=== PATIENT | female | born 1965 | race Caucasian/White ===

== ENCOUNTER 2017-04-22 03:15 | Emergency (ER) | payer OTHER ==
[~2017-04-22] VITALS: Ht 166.4 cm; Wt 80.0 kg
[~2017-04-22 03:15] MED LIST: NOMED
[2017-04-22 03:28] VITALS: BP 155/89; PULSE 87; RESP 14; O2SAT 100
[2017-04-22 04:39] LABS: BASOPHILS % (AUTO) 0.3 % (0-3); EOSINOPHILS % (AUTO) 1.8 % (0-5); MONOCYTES % (AUTO) 9.3 % (4-12); Mean Corpuscular Hemoglobin 30.5 pg (27.0-35.0); NEUTROPHILS % (AUTO) 57.9 % (40-74); Platelet Count 239 bil/L (150-400)
--- NOTE | 2017-04-22 04:58 | ED.REPORT ---
HPI-Chest Pain 40 and Over Date of Service Apr 22, 2017 ED Provider: Daniel Rasmussen MD This is a 51-year-old female with history of GERD who presents to the emergency department with chest pain. Patient reports this is a new sharp chest pain she felt around 12:30 AM today that developed from an acute episode of chronic "xiphoid pain." She mentions she normally has pain from spasms around her xiphoid that radiates to her right flank which has been an ongoing issue for the last 3 years after having her gallbladder removed. Today she noted that she had similar pains but it radiated up into her chest and into the center of her back. She had no associated shortness of breath. Pain is usually worse in a lying position or with lifting objects. She denies fevers, chills, diarrhea, dysuria. She does note she is constipated with her last bowel movement being this morning. Patient mentions she took half a Vicodin and that helped with her pain which is currently a 4 out of 10 in the "center of the back." She does note a new medication Carafate, which she started 2 days prior for suspected gastric ulcer. Nursing Notes Stated Complaint: CHEST AND BACK P AIN Chief Complaint: Chest Pain-Non Cardiac Nature Nursing Notes Reviewed: Yes Allergies: Coded Allergies: acetaminophen (Verified Allergy, Intermediate, projectile vomiting, ) hydrocodone (Verified Allergy, Intermediate, projectile vomiting, 06/11/09 ) oxycodone (Verified Allergy, Intermediate, projectile vomiting, 06/11/09) Scheduled PRN Cyclobenzaprine (Cyclobenzaprine) 10 Mg Tablet 10 MG PO TID PRN PRN Spasm Miscellaneous Medications No Historical Medication (No Historical Medication) Ea General Time Seen by MD: 03:35 Chief Complaint Chest pain Sudden in Onset?: No Past Medical History Past Medical History GERD Past Surgical History Cholecystectomy Family History No family history of heart disease Smoking History Never Smoker Social History Alcohol Use: Denies alcohol use Drug Use: Denies drug use Review of Systems Constitutional: Denies: Chills, Fever Respiratory: Denies: Shortness of breath Cardiovascular: Reports: Chest pain GI: Reports: Abdominal pain, Constipation, Nausea, Denies: Diarrhea, Melena, Vomiting Musculoskeletal: Reports: Back pain, Denies: Extremity pain Complete sys rev & neg: except as marked. Physical Exam Initial Vital Signs Vital Signs (First) Date Time Temp Pulse Resp B/P Pulse Ox O2 Delivery O2 Flow Rate FiO2 04/22/17 03:28 36.5 87 14 155/89 100 Room Air Initial VS: Reviewed Head / Eyes: Atraumatic, Normocephalic ENT: Mucous membranes moist, Conjunctiva normal, No scleral icterus Neck: Supple, Non-tender, Full range of motion Back: No CVA tenderness Skin: Warm, Dry Neurologic: Alert, Oriented General/Constitutional: Awake, Alert, No acute distress Behavior: Positive: Anxious Respiratory / Chest: Atraumatic, Breath sounds NL, Breath sounds = bilat, No respiratory distress Cardiovascular: Heart rate NL, Regular rhythm, Heart sounds NL, No murmurs Abdomen: Soft, McBurney's non-tender, No guarding, No rebound, BS normoactive Tenderness/Guarding/Rebound: Positive: Tender RUQ... (Moderate) Negative [facility] Interpretation & Diagnostics Lab Results Interpretation Result Diagram: 04/22/17 0430 04/22/17 0430 Test 04/22/17 04:15 04/22/17 04:30 Hold Urine Received (Received) White Blood Count 7.8th/mm3 (3.8-10.1) Red Blood Count 4.63mil/mm3 (3.90-5.20) Hemoglobin 14.1g/dL (12.0-15.6) Hematocrit 39.8% (35.0-46.0) Mean Corpuscular Volume 86.0fL (81-100) Mean Corpuscular Hemoglobin 30.5pg (27.0-35.0) Mean Corpuscular Hemoglobin Concent 35.4% (32.0-37.0) Red Cell Distribution Width 13.5% (12.3-15.4) Platelet Count 239bil/L (150-400) Neutrophils (%) (Auto) 57.9% (40-74) Lymphocytes (%) (Auto) 30.6% (14-46) Monocytes (%) (Auto) 9.3% (4-12) Eosinophils (%) (Auto) 1.8% (0-5) Basophils (%) (Auto) 0.3% (0-3) D-Dimer 0.91mg/L FEU (<0.50) Sodium Level 140mEq/L (134-144) Potassium Level 3.8mEq/L (3.5-5.2) Chloride Level 103mEq/L (97-108) Carbon Dioxide Level 18mmol/L (18-29) Blood Urea Nitrogen 17mg/dL (6-24) Creatinine 0.79mg/dL (0.57-1.00) Estimat Glomerular Filtration Rate 110mL/min (>59) Glucose Level 106mg/dL (60-99) Calcium Level 9.6mg/dL (8.5-10.1) Magnesium Level 2.0mg/dL (1.6-2.6) Total Bilirubin 0.3mg/dL (0.0-1.2) Aspartate Amino Transf (AST/SGOT) 19U/L (0-50) Alanine Aminotransferase (ALT/SGPT) 20U/L (0-32) Alkaline Phosphatase 75U/L (25-150) Troponin T 0.010ug/L (0.0-0.011) Total Protein 8.0g/dL (6.4-8.4) Albumin 4.4g/dL (3.4-5.0) Lipase 35U/L (13-60) Hold Alegria Top Tube Received (Received) Re-Eval/Medical Decision Med Decision/Clinical Course This is a 51-year-old female with history of GERD who presents to the emergency department with new chest pain. Differential includes PE, ACS, aortic dissection, esophageal rupture, pneumothorax. Patient does not have any associated shortness of breath. She is hemodynamically stable and on examination heart is regular rate and rhythm without any murmurs and lung sounds are equal bilaterally and clear to auscultation. CBC, CMP and troponin are unremarkable. Patient does have an elevated d-dimer at 0.91. Chest x-ray is unremarkable on wet read. CT angiogram of chest was done which did not show any evidence of PE. There does not seem to be any emergent process going on at this time so patient is advised to follow up with her primary care physician. Counseled Regarding: Lab results, Need for follow-up, When/why to return to ED Discharge & Departure Primary Impression: Chest pain Chest pain type: unspecified Qualified Code: R07.9 - Chest pain, unspecified Disposition: Home Discharge Condition All VS Reviewed: Yes Condition: Stable Patient Instructions: Chest Pain (GEN) Additional Instructions: In the emergency department you were evaluated for your chest pain with blood work, imaging and EKG. Your blood work did not show any signs of any acute process going on with her heart. CT scan of your chest did not show any evidence of any blood clots in your lungs. There does not seem to be an emergent process for your chest pain at this time. You should follow up with their primary care physician to get further worked up for the cause of your pain. I have prescribed cyclobenzaprine to see if this will help with your muscle spasms. Take this only as needed for your muscle spasms. Referrals: Gladys Cantu MD Attending Statement The patient was seen and examined together with Dr. Les Major and I agree with the history, exam and plan as outlined in the note above. copies to: Gladys Cantu MD, Malik A DO Apr 22, 2017 04:58 Daniel Rasmussen MD Apr 22, 2017 06:57
[2017-04-22 05:04] LABS: TROPONIN T 0.01 ug/L (0.0-0.011)
[2017-04-22] MEDS ORDERED: Ondansetron 2 mg/mL 2 mL Inj IVPUSH ONE (05:10)
[2017-04-22 06:46] VITALS: BP 146/72; PULSE 84; RESP 14; O2SAT 100
[2017-04-22] MEDS ORDERED: CYCL10TA9 PO (06:51)
[2017-04-22 07:02] VITALS: BP 136/78; PULSE 84; RESP 14; O2SAT 97
--- NOTE | 2017-04-22 08:09 | DRSVH ---
PROCEDURE: X-RAY CHEST ONE VIEW, PORTABLE ([id number]) INDICATIONS: chest pain TECHNIQUE: One view of the chest was acquired. COMPARISON: None. FINDINGS: Surgical changes and devices: None. Lungs and pleura: No pleural effusions or pneumothorax. Lungs are clear. Mild scattered scarring. Mediastinum: Mediastinal contours appear normal. Heart size is normal. Bones and chest wall: No suspicious bony lesions. Overlying soft tissues appear unremarkable. IMPRESSION: No acute disease. Dictated by: Álvaro Ibarra M.D. on 04/22/2017 at 8:07 Approved by: Álvaro Ibarra M.D. on 04/22/2017 at 8:08
--- NOTE | 2017-04-22 09:54 | DRSVH ---
PROCEDURE: CT ANGIO CHEST PULMONARY EMBOLISM ([id number]) INDICATIONS: Chest pain, elevated d-dimer TECHNIQUE: After the administration of intravenous contrast, 2 mm thick sections acquired from the pulmonary api ro[place]anna to the posterior costophrenic angles. 3-dimensional maximum intensity projection (MIP) coronal a nd sagittal reformats were then acquired through the thorax. For radiation dose reduction, the follo wing was used: automated exposure control, adjustment of mA and/or kV according to patient size. COMPARISON: None. FINDINGS: Image quality: Excellent. Pulmonary arteries: Pulmonary arteries are normal in size, and demonstrate no intraluminal filling d efects to suggest central pulmonary embolism. Lungs and pleura: Lungs are clear of acute opacities. 2 mm subpleural nodule is noted in the lateral periphery of the right upper lobe (series 6, image 22). No pleural effusions or pneumothorax. Cent ral and peripheral airways are patent. Mediastinum: Heart size is normal, without pericardial effusion. No mediastinal or hilar adenopathy . Thoracic aorta is normal in caliber and enhancement. Esophagus is normal in caliber, without hiat al hernia. Bones and chest wall: No suspicious bony lesions. Ribs and thoracic spine appear intact throughout. Thyroid gland is within normal limits where visualized. No axillary or supraclavicular adenopathy. Abdomen: Gallbladder surgically absent Visualized upper abdominal solid organs appear normal in the early arterial phase of enhancement. IMPRESSION: 1. No pulmonary embolus. 2. 2 mm right upper lobe subpleural nodule. Recommend followup imaging based on criteria outlined bel ow. Fleischner Society criteria for SOLID lung nodule followup. Nodule size (mm)Low-risk patientHigh-risk patient<6 (single or multiple)No routine followup.Optional CT at 12 months. 6-8 (single or multiple)CT at 6-12 months, then optional CT at 18-24 mo.CT at 6-12 m onths, then CT at 18-24 months. >8 (single)CT, PET-CT, or biopsy at 3 months. Same as for low-risk p ts. >8 (multiple)CT at 3-6 months, then optional CT at 18-24 mo.CT at 3-6 months, then CT at 18-24 m onths. Recommendations do not apply to lung cancer screening, patients with immunosuppression, or patients w ith known primary cancer. Dictated by: Michelle Molina MD, PhD on 04/22/2017 at 9:47 Approved by: Michelle Molina MD, PhD on 04/22/2017 at 9:52
== END 2017-04-22 07:07 | disposition home or self-care (01) ==
LOC: SED 03:15
DX: R07.89 Other chest pain (principal); K59.00 Constipation, unspecified; K21.9 Gastro-esophageal reflux disease without esophagitis; Z90.49 Acquired absence of other specified parts of digestive tract; Z88.5 Allergy status to narcotic agent; Z88.6 Allergy status to analgesic agent
CPT/HCPCS: 36415; 71010; 71275; 80053; 82948; 83690; 83735; 84484; 85025; 85378; 93005; 96374; 96375; 99285; J2270; J2405; Q9967